=== PATIENT | female | born 1990 | race Caucasian/White ===

== ENCOUNTER 2020-07-29 05:13 | Inpatient (IN) | payer BC ==
[2020-07-29] MEDS ORDERED: METHYLERGONOVINE 0.2 MG/ML 1 ML AMP IM PRN (05:41)
[2020-07-29] MEDS ORDERED: LIDOCAINE 0.5% (PF) 5 MG/ML (50 ML SDV) SQ PRN (05:41)
[2020-07-29] MEDS ORDERED: CARBOPROST TROMETHAMINE 250 MCG/ML 1 ML AMP IM PRN (05:41)
[2020-07-29] MEDS ORDERED: TERBUTALINE 1 MG/ML VIAL SQ PRN (05:41)
[2020-07-29] MEDS ORDERED: OXYTOCIN 10 UNIT/ML 1 ML VIAL IM PRN (05:41)
[2020-07-29] MEDS: LACTATED RINGERS 1,000 ML IV SCH ×3 (05:58→07:00)
[2020-07-29 06:28] LABS: Basophils % (A) 0 %; Eosinophils # (A) 0.1 k/uL (0-0.7); Eosinophils % (A) 1 %; HCT 41.4 % (34.0-46.0); HGB 13.5 gm/dL (11.4-16.0); Lymphocytes # (A) 1.9 k/uL (1.0-4.8); Lymphocytes % (A) 13 %; MCH 29.9 pg (25.0-35.0); MCHC 32.6 g/dL (31.0-37.0); MCV 91.8 fL (80.0-100.0); Mean Platelet Volume 8.5; Monocytes # (A) 0.6 k/uL (0-1.0); Monocytes % (A) 4 %; Neutrophils # (A) 12.4 k/uL (1.3-7.7); Neutrophils % (A) 81 %; Platelet Count 335 k/uL (150-450); RBC 4.51 m/uL (3.80-5.40); RDW 13.5 % (11.5-15.5); WBC 15.4 k/uL (3.8-10.6)
[2020-07-29] MEDS ORDERED: ROPIVACAINE 5MG/ML 20ML VIAL ONE (06:40)
[2020-07-29] MEDS ORDERED: SODIUM CHLORIDE 0.9% 100 ML BAG ONE (06:40)
[2020-07-29] MEDS ORDERED: fentaNYL (PF) 50 MCG/ML 5 ML AMP ONE (06:40)
--- NOTE | 2020-07-29 10:23 | P.HPOB ---
History of Present Illness H&P Date: 07/29/20 Chief Complaint: 37+ weeks, active labor The patient is a 30-year-old 1 para 0 admitted at 37+ weeks as established by early ultrasound. She is admitted in active labor with her cervix being found to be 6 cm in dilation. She is also having heavy bloody show but has had multiple issues with some bleeding both before and during from her cervix. There is no evidence of any placental origins. On labor and delivery, all signs are entirely reassuring with a category 1 heart tracing. Her has been entirely uncomplicated though she is Rh- and received RhoGAM at 28 weeks. Group B strep status is negative. Obstetrical history: 1 para 0 with current statistics listed in history of present illness. EDC of 08/13/2020 was established by early ultrasound. Laboratory workup demonstrates a blood type of A- with a negative antibody screen. Rubella status is immune. The remainder of the laboratory workup was within normal limits. One hour Glucola is normal and group B strep status is negative. 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 Review of Systems Review of systems is confined to history of present illness. Past Medical History Past Medical History: No Reported History History of Any Multi-Drug Resistant Organisms: None Reported Additional Past Surgical History / Comment(s): [place] tooth extraction Past Anesthesia/Blood Transfusion Reactions: No Reported Reaction Past Psychological History: No Psychological Hx Reported Smoking Status: Never smoker Past Alcohol Use History: None Reported Past Drug Use History: None Reported - Past Family History Father Family Medical History: Cancer Additional Family Medical History / Comment(s): Colon Cancer Medications and Allergies Home Medications Medication Instructions Recorded Confirmed Type Pnv No.95/Ferrous Fum/Folic AC 1 each PO DAILY 07/29/20 07/29/20 History [ Multivitamin Tablet] Allergies Allergy/AdvReac Type Severity Reaction Status Date / Time No Known Allergies Allergy Verified 07/29/20 05:24 Exam Vital Signs Temp Pulse Resp BP Pulse Ox 07/29/20 05:59 97.2 F L 66 16 119/76 99 07/29/20 05:42 97.2 F L 66 16 119/76 Intake and Output 07/28/20 07/29/20 07/29/20 22:59 06:59 14:59 Other: # Voids 1 Weight 80.286 kg In general, this is a well-developed, well-nourished white female in no acute distress. Her heart has a regular rhythm and rate without murmur. Her lungs are clear to auscultation bilaterally in all kiran. Her abdomen is gravid, nondistended, has normal active bowel sounds, soft, nontender, and without any palpable masses aside from uterine fundus. Her extremities are without any cyanosis, clubbing, or significant edema and are nontender to palpation bilaterally. Digital cervical examination demonstrates her cervix to be 8 cm dilated, 70% effaced, with the vertex in presentation at -2 station and a bulging bag of water. Artificial rupture of membranes is carried out demonstrating clear fluid. She continues to have heavy bloody show. Results Result Diagrams: 07/29/20 05:55 Abnormal Lab Results - Last 24 Hours (Table) 07/29/20 Range/Units 05:55 WBC 15.4 H (3.8-10.6) k/uL Neutrophils # 12.4 H (1.3-7.7) k/uL Assessment and Plan (1) Active labor at term Current Visit: Yes Status: Acute Code(s): OMO6952 - SNOMED Code(s): 03760496 Plan: The patient will continue to have close maternal and surveillance and expectant management will be practiced. An epidural catheter has been placed for analgesia.
[2020-07-29] MEDS ORDERED: HYDROcodone/APAP 5-325MG 1 EACH TAB PO PRN (12:34)
[2020-07-29] MEDS ORDERED: HYDROCORTISONE 2.5% RECTAL CREAM 30 GM TUBE RECTAL PRN (12:34)
[2020-07-29] MEDS ORDERED: LANOLIN CREAM 5 GM TUBE TOPICAL PRN (12:34)
[2020-07-29] MEDS ORDERED: diphenhydrAMINE 25 MG CAP PO PRN (12:34)
[2020-07-29] MEDS ORDERED: SIMETHICONE 80 MG CHEWABLE PO PRN (12:34)
[2020-07-29] MEDS ORDERED: diphenhydrAMINE 50 MG CAP PO PRN (12:34)
[2020-07-29] MEDS ORDERED: ZOLPIDEM 5 MG TAB PO PRN (12:34)
[2020-07-29] MEDS ORDERED: diphenhydrAMINE 50 MG/ML 1 ML VIAL IVP PRN ×2 (12:34)
[2020-07-29] MEDS ORDERED: BENZOCAINE/MENTHOL SPRAY 1 GM/SPRAY AEROSOL TOPICAL PRN (12:34)
[2020-07-29] MEDS ORDERED: HYDROcodone/APAP 7.5-325MG 1 EACH TAB PO PRN (12:34)
[2020-07-29] MEDS ORDERED: ACETAMINOPHEN TAB 325 MG TAB PO PRN (12:34)
--- NOTE | 2020-07-29 12:38 | P.PROBDLV ---
Vaginal Delivery Note - . Vaginal Delivery Note: The patient is a 30-year-old 1 para 0 admitted at 37-6/7 weeks by good dating parameters. She is admitted in active labor with all signs reassuring. Her has been uncomplicated and group B strep status is negative. She is Rh- and received RhoGAM at 28 weeks. On labor and delivery, she made relatively slow progress through the active phase of labor and ultimately underwent artificial rupture of membranes for clear fluid. She then progressed fairly steadily to complete and pushed over the course of approximately 40-45 minutes to a normal spontaneous vaginal delivery of a viable 6 lbs. 15 oz. baby boy with Apgars of 9 at 1 minute and 9 at 5 minutes delivered in left occiput anterior position. There was a loose nuchal cord 1 which was reduced following delivery of the infant. The placenta was delivered spontaneously, intact, and grossly normal with a grossly normal, marginally inserted three-vessel cord. There were no lacerations of the perineum, vagina, or cervix. However there was a second-degree right labial laceration just lateral to the clitoral lamas which was repaired in standard fashion using 3-0 chromic catgut. Estimated blood loss for the case was approximately 300 mL. There were no complications. All sponge, instrument, and needle counts were correct. Both mother and infant are resting comfortably in recovery.
[2020-07-29] MEDS ORDERED: OXYTOCIN 20 UNITS/1000 ML NS 1,000 ML IV SCH (12:45)
[2020-07-29] MEDS ORDERED: Rhogam IMMUNE GLOBULIN 1,500 UNIT/1 ML IM ONE (16:39)
[2020-07-29] MEDS ORDERED: SENNOSIDES-DOCUSATE SODIUM 1 EACH TAB PO SCH (20:00)
[2020-07-29] MEDS: IBUPROFEN 600 MG TAB PO PRN (23:26)
--- NOTE | 2020-07-30 07:29 | P.DS ---
Providers Date of admission: 07/29/20 05:38 Expected date of discharge: 07/30/20 Attending physician: Marlyn Pollack Primary care physician: Stated None - Discharge Diagnosis(es) (1) Active labor at term Current Visit: Yes Status: Acute (2) Normal spontaneous vaginal delivery Current Visit: Yes Status: Acute Hospital Course: The patient is a 30-year-old 1 para 0 admitted at 37+ weeks by good dating parameters. She is admitted in active labor with all signs reassuring. On labor and delivery, she had an epidural catheter placed for analgesia and then ultimately underwent artificial rupture of membranes for clear fluid. She progressed to complete and then pushed to a normal spontaneous vaginal delivery of a viable 6 lbs. 15 oz. baby boy with Apgars of 9 at 1 minute and 9 at 5 minutes. Her course was unremarkable with vital signs remaining stable and her temperature was afebrile throughout. She was deemed stable for discharge on day #1 and was discharged home to follow-up in the office in 6 weeks' time routinely. Discharge instructions included calling for any significantly increased bleeding or foul-smelling lochia, significantly increased fever or abdominal pain, perineal complaints, breast complaints, or anything else that concerned her. She was additionally instructed to have nothing in the vagina for at least 6 weeks time to include intercourse. She understood her instructions and agrees to follow up as noted above. Discharge medications included continued vitamins as well as [id number] analgesic pain medications as needed. Maternal blood type is A- and cord blood was sent for evaluation for the necessity of RhoGAM prior to discharge. Rubella status is immune. Procedures: #1. Epidural analgesia #2. Artificial rupture of membranes #3. Normal spontaneous vaginal delivery #4. Repair of right labial laceration Patient Condition at Discharge: Good Plan - Discharge Summary New Discharge Prescriptions: No Action Pnv No.95/Ferrous Fum/Folic AC [ Multivitamin Tablet] 1 each PO DAILY Discharge Medication List Pnv No.95/Ferrous Fum/Folic AC [ Multivitamin Tablet] 1 each PO DAILY 07/29/20 [History] Follow up Appointment(s)/Referral(s): Marlyn Pollack DO [Doctor of Osteopathic Medicine] - 6 Weeks Discharge Disposition: HOME SELF-CARE
[2020-07-30 09:12] VITALS: BP 123/79; PULSE 76; RESP 14; TEMP 97.8
[2020-07-30] MEDS: IBUPROFEN 600 MG TAB PO PRN (09:12)
== END 2020-07-30 13:12 | disposition home or self-care (01) | DRG 768 ==
LOC: FBPOP 05:13 → 4FBP 05:38
PROVIDERS: ADMIT Obstetrics & Gynecology; ATTEND Obstetrics & Gynecology Obstetrics
PROC: 00HU33Z Insertion of Infusion Device into Spinal Canal, Percutaneous Approach (ICD-10-PCS; principal; 2020-07-29)
PROC: 0HQ9XZZ Repair Perineum Skin, External Approach (ICD-10-PCS; principal; 2020-07-29)
PROC: 0UQJXZZ Repair Clitoris, External Approach (ICD-10-PCS; principal; 2020-07-29)
PROC: 3E0R3BZ Introduction of Anesthetic Agent into Spinal Canal, Percutaneous Approach (ICD-10-PCS; principal; 2020-07-29)
PROC: 3E0234Z Introduction of Serum, Toxoid and Vaccine into Muscle, Percutaneous Approach (ICD-10-PCS; principal; 2020-07-29)
PROC: 10E0XZZ Delivery of Products of Conception, External Approach (ICD-10-PCS; principal; 2020-07-29)
DX: O69.81X0 Labor and delivery complicated by cord around neck, without compression, not applicable or unspecified (principal); Z37.0 Single live birth; O26.893 Other specified pregnancy related conditions, third trimester; Z67.11 Type A blood, Rh negative; O70.0 First degree perineal laceration during delivery; O99.62 Diseases of the digestive system complicating childbirth; K21.9 Gastro-esophageal reflux disease without esophagitis; Z3A.37 37 weeks gestation of pregnancy; Z79.899 Other long term (current) drug therapy; Z80.0 Family history of malignant neoplasm of digestive organs
CPT/HCPCS: 59025; 85025; 85461; 86850; 86870; 86880; 86900; 86901; 99213